=== PATIENT | male | born 1975 | race Caucasian/White ===

== ENCOUNTER 2017-12-15 11:10 | Emergency (ER) | payer SELFPAY ==
[~2017-12-15] VITALS: Ht 172.7 cm; Wt 66.6 kg
[2017-12-15 11:38] VITALS: BP 161/97
[2017-12-15] MEDS ORDERED: DIPH,PERTUSS(ACELL),TET VAC/PF 0.5 ML IM-VACC ONE ×2 (11:53→12:00)
[2017-12-15] MEDS ORDERED: LIDOCAINE-MPF 1%, 2ML ONE (11:53)
[2017-12-15] MEDS ORDERED: SODIUM CHLORIDE FLUSH 10ML SYR IVF ONE (12:00)
[2017-12-15] MEDS ORDERED: LIDOCAINE-MPF 1%, 5ML INFIL ONE (12:00)
[2017-12-15] MEDS ORDERED: CLINDAMYCIN PMX 900MG/50ML 50 ML IVPB ONE (12:00)
[2017-12-15] MEDS ORDERED: SODIUM CHLORIDE 0.9% 1,000ML IVBOLUS ONE (12:00)
[2017-12-15] MEDS ORDERED: CLINDAMYCIN PMX 900MG/50ML 50 ML ONE (12:32)
== END 2017-12-15 13:32 | disposition home or self-care (01) ==
LOC: ED 13:30
DX: L02.512 Cutaneous abscess of left hand (principal); W22.8XXA Striking against or struck by other objects, initial encounter; Y93.89 Activity, other specified; Y99.8 Other external cause status; Y92.830 Public park as the place of occurrence of the external cause
CPT/HCPCS: 10060; 90471; 90715; 96365

== ENCOUNTER 2018-01-17 17:16 | Emergency (ER) | payer SELFPAY ==
[~2018-01-17] VITALS: Ht 172.7 cm; Wt 69.0 kg
[2018-01-17 17:22] VITALS: BP 133/92
[2018-01-17] MEDS ORDERED: LIDOCAINE 2%, 10ML INFIL ONE (18:00)
[2018-01-17] MEDS ORDERED: AMPICILLIN/SULBACTAM 3 GM in SODIUM CHLORIDE 0.9% 100 ML IV ONE (18:00)
[2018-01-17] MEDS ORDERED: LIDOCAINE-MPF 2%, 2ML ONE (18:11)
== END 2018-01-17 19:08 | disposition home or self-care (01) ==
LOC: ED 18:42
DX: L02.415 Cutaneous abscess of right lower limb (principal); F17.200 Nicotine dependence, unspecified, uncomplicated
CPT/HCPCS: 10060; 96365; 99284; J0295; J3490

== ENCOUNTER 2018-01-19 09:50 | Emergency (ER) | payer MEDICAID ==
[~2018-01-19] VITALS: Ht 172.7 cm; Wt 70.0 kg
[2018-01-19 10:05] VITALS: BP 117/83
== END 2018-01-19 11:24 | disposition home or self-care (01) ==
LOC: ED 11:20
DX: L02.415 Cutaneous abscess of right lower limb (principal); F17.200 Nicotine dependence, unspecified, uncomplicated
CPT/HCPCS: 99283

== ENCOUNTER 2020-07-25 10:56 | Emergency (ER) | payer MEDICAID ==
[~2020-07-25] VITALS: Ht 170.2 cm; Wt 73.3 kg
--- NOTE | 2020-07-25 11:50 | NUR ---
ENVIRONMENTAL FIELD PROFESSIONAL: PT TO ROOM FROM [facility]
--- NOTE | 2020-07-25 12:05 | NUR ---
mild wob, room air pox 98%, slightly deminished lung sounds throughout right lung
--- NOTE | 2020-07-25 12:08 | NUR ---
ERMD AT BEDSIDE TO DISCUSS POC.
--- NOTE | 2020-07-25 12:10 | NUR ---
REPORT RECEIVED FROM MARIANO FUNG FOR TRANSFER OF PATIENT CARE.
--- NOTE | 2020-07-25 12:26 | NUR ---
INCENTIVE SPIROMETER GIVEN TO PATIENT.
[2020-07-25 12:51] LABS: BASOPHILS % (AUTO) 1 % (0-1); EOSINOPHILS % (AUTO) 0 % (1-7); LYMPHOCYTES % (AUTO) 12 % (22-44); MEAN CORPUSCULAR HEMOGLOBIN 34.3 pg (27.5-34.5); MEAN CORPUSCULAR HGB CONC 34.8 g/dL (33.2-36.2); MEAN PLATELET VOLUME 7.1 fL (7.4-10.4); MONOCYTES % (AUTO) 8 % (2-9); NEUTROPHILS % (AUTO) 79 % (42-75); PLATELET COUNT 273 x10^3/uL (130-400); RED BLOOD COUNT 4.64 x10^6/uL (4.38-5.82); RED CELL DISTRIBUTION WIDTH 13.1 % (9.4-14.8)
[2020-07-25 12:58] LABS: MD NO
[2020-07-25] MEDS ORDERED: OMNIPAQUE 350 MG/ML, 75ML BOTTLE ONE ×2 (13:12→13:25)
[2020-07-25 13:25] LABS: ALBUMIN 3.5 g/dL (3.4-5.0); ANION GAP 8 mmol/L (5-15); CALCIUM 8.4 mg/dL (8.5-10.1); CHLORIDE 104 mmol/L (98-107); CREATININE 0.85 mg/dL (0.7-1.3)
[2020-07-25 13:45] VITALS: BP 116/80
--- NOTE | 2020-07-25 13:46 | NUR ---
BREAK RN: PT WATCHING TV IN ROOM. VS STABLE. PHOTO TECH ON. CALL LIGHT IN PLACE. WILL CONTINUE TO MONITOR WHILE PRIMARY RN IS ON BREAK.
--- NOTE | 2020-07-25 14:04 | NUR ---
BREAK RN: CALLED REPORT INTO [facility] SPOKE TO CHARGE.
--- NOTE | 2020-07-25 14:10 | NUR ---
THROUGHPUT RN: SPOKE W/ ALLEN AT [facility] WHO STATES SINCE PT IS TRAUMA CRITERIA BUT PT IS NON-EMERGENT PER ERP DR. LUGO PRIOR AUTH REQUIRED FROM .T.. SPOKE W/ LAURA AT [facility] AND PROVIDED W/ PRIOR AUTH#[id number]. SPOKE AGAIN W/ ALLEN AT [facility] WHO PROVIDED PT W/ ETA 1500.
--- NOTE | 2020-07-25 15:01 | NUR ---
PATIENT TRANSFERRED TO [facility] IN STABLE CONDITION VIA [facility], ALL PATIENT BELONGINGS GATHERED AND TAKEN WITH EMS.
== END 2020-07-25 15:02 | disposition designated cancer center or children's hospital (05) ==
LOC: ED 12:52
DX: S22.41XA Multiple fractures of ribs, right side, initial encounter for closed fracture (principal); S27.0XXA Traumatic pneumothorax, initial encounter; M54.5 Low back pain; F10.20 Alcohol dependence, uncomplicated; F17.200 Nicotine dependence, unspecified, uncomplicated; X58.XXXA Exposure to other specified factors, initial encounter; Y93.89 Activity, other specified; Y92.89 Other specified places as the place of occurrence of the external cause; Y99.8 Other external cause status; Y90.0 Blood alcohol level of less than 20 mg/100 ml
CPT/HCPCS: 36415; 71046; 71260; 80048; 82040; 85025; 99285; Q9967